=== PATIENT | female | born 1980 | race Two or more races ===

== ENCOUNTER 2016-05-22 11:23 | Emergency (ER) | payer OTHER ==
[2016-05-22 12:18] LABS: ABSOLUTE NEUTROPHIL COUNT 2.5 K/mm3 (1.8-7.7); BASO % 0.7 % (0.2-1.0); EOS # 0.1 (0.0-0.5); EOS % 2.9 % (0.9-2.9); HEMOGLOBIN 6.9 gm/l (12.0-16.0); IMM NEUT% 0.2 % (0-1); LYMPH # 1.3 (1.0-4.8); LYMPH % 31.6 % (15-45); MEAN CELL VOLUME 74.5 fl (81.0-99.0); MEAN CORPUSCULAR HEMOGLOBIN 19.8 pg (27.0-31.0); MEAN CORPUSCULAR HGB CONC 26.5 g/dl (33.0-37.0); MEAN PLATELET VOLUME 10.9 fl (7.4-10.4); MONO # 0.2 (0.0-0.8); MONO % 5.5 % (4-12); NEUT % 59.1 % (43-75); PLATELET COUNT 273 K/mm3 (130-400); RED CELL DISTRIBUTION WIDTH 18.3 % (11.5-14.5)
[2016-05-22 14:34] LABS: HYPOCHROMIA 2+; PLATELET ESTIMATE DECREASED (NORMAL)
== END 2016-05-22 13:02 | disposition home or self-care (01) ==
LOC: ED 11:23
DX: N93.8 Other specified abnormal uterine and vaginal bleeding (principal); D64.9 Anemia, unspecified